=== PATIENT | male | born 1965 | race Caucasian/White ===

== ENCOUNTER 2020-12-21 05:25 | Emergency (ER) | payer OTHER, SELFPAY ==
--- NOTE | ~2020-12-21 | XR_ITS ---
EXAMINATION: CT abdomen pelvis wo con, XR abdomen/kub 1V DATE: 12/21/2020 05:50 (accession [id number]), 12/21/2020 05:54 (accession [id number]) INDICATION: Right flank pain TECHNIQUE: Computed tomography (CT) of the abdomen and pelvis was performed without intravenous contr ast. The dose-length product was 468.67 mGy-cm. Automated exposure control and iterative reconstructi on technique were employed. KUB. COMPARISON: No prior studies for comparison. . FINDINGS: Lung bases are unremarkable. Heart size is normal. No significant pleural or pericardial ef fusion. There is a 4 mm in stone at the expected location of the UPJ, possibly in the bladder. Mild r ight hydroureteronephrosis. Fatty infiltration of the liver. The spleen, pancreas, adrenal glands are unremarkable. There are nonobstructing bilateral renal stones. There are mildly prominent mesenteric lymph nodes with stranding of the mesentery in the left upper a bdomen. Nonobstructive bowel gas pattern. Small fat-containing umbilical hernia. Gallbladder is prese nt. The spleen, pancreas are unremarkable. No abnormal pelvic masses or fluid collections. Mild lower lumbar spondylosis. KUB: The right UPJ stone is not identified on KUB. There are left pelvic phleboliths. Bowel gas patte rn nonobstructive. IMPRESSION: 1. Partially obstructive 4 mm stone near the expected location of the right UPJ, possibly in the blad patricia. Mild right hydronephrosis. 2: Bilateral nonobstructing nephrolithiasis. Reviewed, dictated and finalized at location A. IMPRESSION: 1. Partially obstructive 4 mm stone near the expected location of the right UPJ , possibly in the bladder. Mild right hydronephrosis. 2: Bilateral nonobstructing nephrolithiasis.
[2020-12-21 05:30] VITALS: BP 167/98; PULSE 70; RESP 18; TEMP 36.8; O2SAT 97
[2020-12-21 05:47] LABS: Basophils Percent Auto 0.4 % (0.2-1.2); Eosinophils Absolute Auto 0.2 K/mm3 (0-0.3); Eosinophils Percent Auto 2.1 % (0-4.4); Hematocrit 44.6 % (42.0-52.0); Hemoglobin 15.9 g/dL (14.0-18.0); Immature Granulocyte Absolute 0.03 K/mm3 (0.00-0.031); Immature Granulocyte Percent A 0.3 % (0-0.5); Lymphocytes Absolute Auto 1.47 K/mm3 (0.9-3.2); Lymphocytes Percent Auto 14.8 % (18.3-44.2); Mean Corpuscular HGB Conc 35.7 g/dl (32-36); Mean Corpuscular Hemoglobin 32.2 pg (26-34); Mean Corpuscular Volume 90.3 fl (80-100); Mean Platelet Volume 11.3 fl (7.4-10.4); Monocytes Absolute Auto 0.7 K/mm3 (0.1-0.6); Monocytes Percent Auto 6.7 % (2.6-8.5); Neutrophils Absolute Auto 7.5 K/mm3 (1.3-6.7); Neutrophils Percent Auto 75.7 % (45.5-73.1); Platelet Count Result 190 k/mm3 (150-375); Red Blood Count 4.94 M/mm3 (4.6-6.20); Red Cell Distribution Width 10.8 % (11.5-14.5)
[2020-12-21] MEDS: SODIUM CHLORIDE 0.9% IV 1,000 ML 999 ML IV CONT (05:54)
[2020-12-21] MEDS: MORPHINE SULFATE (*CRX) 4 MG/ML INJ IV PUSH (05:54)
[2020-12-21] MEDS: ONDANSETRON INJ 4 MG/2 ML VIAL IV PUSH (05:54)
[2020-12-21 05:56] LABS: Alanine Aminotransferase 88 U/L (4-50); Albumin Level 4.5 g/dL (3.5-5.1); Alkaline Phosphatase 83 U/L (38-126); Anion Gap 10 mmol/L (8-16); Aspartate Amino Transferase 47 U/L (17-59); Bilirubin,Total 0.8 mg/dL (0.2-1.3); Blood Urea Nitrogen 15 mg/dL (9-20); Calcium 9.1 mg/dL (8.4-10.2); Carbon Dioxide 22 mmol/L (22-30); Chloride 105 mmol/L (98-107); Estimated CRCL calculation 121 ml/min; Estimated Glomerular Filt Rate > 60; Glucose 237 mg/dL (65-110); Potassium 3.7 mmol/L (3.4-5.0); Sodium 137 mmol/L (137-145)
[2020-12-21 06:21] LABS: Add Urine Microscopic? YES; Appearance Urine Clear (Clear); Bilirubin Urine Negative (Negative); Blood Urine 1+ (Negative); Color Urine Yellow (Yellow); Glucose Urine UA 2+ mg/dL (Negative); Ketones Urine Trace mg/dL (Negative); Leukocyte Esterase Ur Negative LEU/UL (Negative); Mucus Urine Few /lpf; Nitrate Urine Negative (Negative); Protein Urine 1+ mg/dL (Negative); Urobilinogen Urine Negative mg/dL (<2.0); WBC Urine 0-3 /hpf
[2020-12-21 06:46] VITALS: BP 151/81; PULSE 81; RESP 16; O2SAT 98
--- NOTE | 2020-12-21 07:27 | ED.ABDPAIN ---
HPI - Abdominal Pain General Chief Complaint: Urogenital-Male Stated Complaint: kidney stones Time Seen by Provider: 12/21/20 05:31 History of Present Illness HPI narrative: Patient presents with sudden onset right flank pain which started this morning when he woke up. Pain is achy/crampy, constant, no clear aggravating or alleviating factors radiates to his groin. Reports sensation of needing urinate but is unable to get sick around the urine out. Denies any fevers, cough. Reports some nausea but no vomiting or diarrhea. He denies any dysuria or hematuria. He denies any prior history of stone. Related Data Home Medications Medication Instructions Recorded Confirmed multivitamin 1 tablet PO DAILY 07/10/20 11/13/20 vitamin E 200 unit capsule 200 unit PO DAILY 07/10/20 11/13/20 Allergies Allergy/AdvReac Type Severity Reaction Status Date / Time No Known Allergies Allergy Verified 12/21/20 05:47 Review of Systems Review of Systems: CONSTITUTIONAL: Denies fever, chills, or sweats. EYES: Denies visual changes, redness, or discharge. ENT: Denies rhinorrhea, congestion, sore throat, or otalgia. CARDIOVASCULAR: Denies chest pain, palpitations, or edema. RESPIRATORY: Denies cough or dyspnea. GASTROINTESTINAL: Denies vomiting, or diarrhea. GENITOURINARY: Denies dysuria or hematuria. SKIN: Denies rash or itching. MUSCULOSKELETAL: Denies back pain, joint pain, or myalgia. NEUROLOGIC: Denies headache, numbness, dizziness, or weakness. PSYCHIATRIC: Denies anxiety or depression. All systems reviewed & are unremarkable except as noted in HPI and below PMFSH Past Medical History Medical History Hypertension Family History Family History Mother Colostomy care Father Brain aneurysm Social History Social History Smoking status: Never smoker Gender identity (if verbalized by the patient): Male Exam Narrative: GENERAL: Well-appearing, well-nourished, and in no acute distress. HEAD: Normocephalic, atraumatic. EYES: PERRLA and EOMI. ENT: Nares clear, no rhinorrhea or epistaxis. Mucous membranes moist. NECK: Supple. No masses. No JVD ABDOMEN: Soft, nontender, nondistended EXTREMITIES: Normal range of motion. No edema. SKIN: Warm, dry, no rash. NEURO: No focal deficits. Alert and oriented x3. PSYCH: Normal mood and affect. Course Vital Signs Vital signs: Vital Signs Temperature 36.8 C 12/21/20 05:30 Pulse Rate 70 12/21/20 05:30 Respiratory Rate 18 12/21/20 05:30 Blood Pressure 167/98 H 12/21/20 05:30 Pulse Oximetry 97 12/21/20 05:30 Temperature 36.8 C 12/21/20 05:30 Pulse Rate 81 12/21/20 06:46 Respiratory Rate 16 12/21/20 06:46 Blood Pressure 151/81 H 12/21/20 06:46 Pulse Oximetry 98 12/21/20 06:46 MDM - Abdominal Pain MDM Narrative Medical decision making narrative: H&P as above, vss, pt looks clinically well, exam without reproducible pain, labs with hematuria otherwise clinically unremarkable img with 4 mm UVJ stone, additional labs/img considered, symptomatic relief available as needed, on reevaluation pt continues to looks clinically well and reports large improvement in symptoms. Suspect ureteral stone, dns infected stone, acute abdomen, acute kidney injury. plan to tx/monitor as op w/ urology f/u findings/plan discussed with pt, pt agree/comfortable with plan, return precautions given Lab Data Result diagrams: 12/21/20 05:39 12/21/20 05:39 Labs: Lab Results 12/21/20 12/21/20 12/21/20 Range/Units 05:39 05:39 06:04 WBC 10.0 (4.5-10.0) K/mm3 RBC 4.94 (4.6-6.20) M/mm3 Hgb 15.9 (14.0-18.0) g/dL Hct 44.6 (42.0-52.0) % MCV 90.3 (80-100) fl MCH 32.2 (26-34) pg MCHC 35.7 (32-36) g/dl RDW 10.8 L (11.5-14.5) % Plt Count 1
== END 2020-12-21 07:53 | disposition home or self-care (01) ==
PROVIDERS: Emergency Provider Emergency Medicine; PCP Internal Medicine
DX: N13.2 Hydronephrosis with renal and ureteral calculous obstruction (principal); I10 Essential (primary) hypertension
CPT/HCPCS: 36415; 74018; 74176; 80053; 81001; 85025; 96361; 96374; 96375; 99284; J2270; J2405; J7030

== ENCOUNTER 2021-05-25 09:25 | Outpatient (CLI) | payer OTHER, SELFPAY ==
--- NOTE | ~2021-05-25 | US_ITS ---
EXAMINATION: US abdomen complete EXAM DATE: 05/25/2021 09:59 INDICATION: K76.0 - Fatty (change of) liver, not elsewhere classified TECHNIQUE: Multiple grayscale and Doppler images of the complete abdomen were obtained (by a technolo gist who performed the scan) and subsequently reviewed. Comparison is made to prior examination from 07/01/2016. FINDINGS: The abdominal aorta is normal in caliber. Visualized portion IVC is patent. The pancreatic head a nd body are normal in appearance. The pancreatic tail is not visualized. There is echogenic liver parenchyma with poor penetration, hepatic steatosis. There are no focal mellissa er lesions identified. There is no evidence of intrahepatic biliary duct dilation. Portal venous f low was seen in the hepatopedal, normal direction and has normal Doppler waveform. Common bile duct measures 5 mm, which is normal. The gallbladder wall is normal in thickness, with ex pected amount of distention. No sonographic evidence of pericholecystic fluid. There is no cholelit hiases. Technologist performing exam reports patient did not demonstrate sonographic Joyner's sign. Please note that this sign is less reliable in patients who have received pain medication. Right kidney: There is normal contour and echogenicity. It measures 12.6 x 5.2 x 5.6 centimeters. There are no focal renal lesions identified. There is no hydronephrosis. Left kidney: There is normal contour and echogenicity. It measures 13.7 x 6.2 x 5.4 centimeters. T here are no focal renal lesions identified. There is no hydronephrosis. The spleen measures 11 centimeters and is morphologically normal. IMPRESSION: 1. Hepatic steatosis. Reviewed, dictated and finalized at location B. REMOVER IMPRESSION: 1. Hepatic steatosis.
== END 2021-05-25 09:26 | disposition home or self-care (01) ==
PROVIDERS: PCP Internal Medicine; Visit Provider Internal Medicine
DX: K76.0 Fatty (change of) liver, not elsewhere classified (principal)
CPT/HCPCS: 76700

== ENCOUNTER 2021-06-11 13:42 | Outpatient (CLI) | payer OTHER, SELFPAY ==
--- NOTE | ~2021-06-11 | XR_ITS ---
XR foot RT min 3V DATE: 06/11/2021 14:02 INDICATION: Bilateral foot pain. No injury. TECHNIQUE: 4 views COMPARISON: None FINDINGS: Mild plantar calcaneal enthesopathy. Mild tibiotalar and first metatarsophalangeal osteoarthritis. No fracture, dislocation, periosteal reaction or bone destruction. IMPRESSION: Plantar calcaneal enthesopathy Mild tibiotalar and first metatarsophalangeal joint osteoarthritis Reviewed, dictated and finalized at location A. 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
--- NOTE | ~2021-06-11 | XR_ITS ---
XR foot LT min 3V DATE: 06/11/2021 14:02 INDICATION: Bilateral foot pain TECHNIQUE: 4 views COMPARISON: None FINDINGS: There is tibiotalar and first metatarsophalangeal osteoarthritis. No fracture or dislocation, periosteal reaction or bone destruction is detected. There is calcification of the distal Achilles tendon. IMPRESSION: Tibiotalar first metatarsophalangeal osteoarthritis Distal Achilles tendon calcification Reviewed, dictated and finalized at location A. P TEACHER
== END 2021-06-11 13:43 | disposition home or self-care (01) ==
LOC: ANHBWCIMG 13:44
PROVIDERS: PCP Internal Medicine; Visit Provider Orthopaedic Surgery
DX: M77.31 Calcaneal spur, right foot (principal); M19.071 Primary osteoarthritis, right ankle and foot; M19.072 Primary osteoarthritis, left ankle and foot
CPT/HCPCS: 73630

== ENCOUNTER 2024-08-29 09:59 | Emergency (ER) | payer OTHER, SELFPAY ==
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
--- OUTSIDE RECORDS SUMMARY | 2024-08-29 10:01 | XMS_ITS | Clinical Summary ---
Author Organization [facility] Address [address] [place] [address] Care Team Providers Care Disintegrator Operator Name Role Phone Dre Christianson MD Primary Care Provider [phone] Allergies No known active allergies Medications gabapentin (NEURONTIN) 300 mg capsule Take one by mouth three times per day as needed 90 1 07/28/2007 Active pregabalin (LYRICA) 50 mg capsule Take one by mouth three times per day as needed 90 3 08/04/2007 Active methylPREDNISol one (MEDROL, MARZENA,) 4 mg tablet Take as directed 1 0 08/18/2007 Active HYDROcodone-sasha taminophen (NORCO) 5-325 mg per tablet take 1 tablet by oral route every 6 hours as needed for pain 0 0 06/06/2016 Active amLODIPine (NORVASC) 10 mg tablet 02/04/2017 Active Active Problems No known active problems Surgical History Surgery Date Site/Laterality Comments OTHER SURGICAL HISTORY 2000 fluid in sac: hydroseal Medical History Medical History Date Comments Hx Other Medical 2000 fluid in sac Family History Medical History Relation Name Comments Cancer Other 1 Family history of Cancer, unknown; Heart disease Other 2 Family history of Heart disease; Hypertension Other 3 Family history of Hypertension; Relation Name Status Comments Other 1 Other 2 Other 3 Social History Tobacco Use Types Packs/Day Years Used Date Smoking Tobacco: Never Smokeless Tobacco: Never Alcohol Use Standard Drinks/Week Comments Yes 0 (1 standard drink = 0.6 oz pur e alcohol) Sex and Gender Information Value Date Recorded Sex Assigned at Not on file Legal Sex Male 3:50 PM YOUTH PROBATION OFFICER Gender Identity Not on file Sexual Orientation Not on file Obstetrics History Last Filed Vital Signs Vital Sign Reading Time Taken Comments Blood Pressure 154/93 04/07/2017 7:20 AM YOUTH PROBATION OFFICER Pulse 77 04/07/2017 7:20 AM YOUTH PROBATION OFFICER Temperature - - Respiratory Rate - - Oxygen Saturation - - Inhaled Oxygen Concentration - - Weight 112.3 kg (247 lb 9.6 oz) 04/07/2017 7:20 AM YOUTH PROBATION OFFICER Height 185.4 cm (6' 1 ) 04/07/2017 7:20 AM YOUTH PROBATION OFFICER Body Mass Index 32.67 04/07/2017 7:20 AM YOUTH PROBATION OFFICER Plan of Treatment Not on file Care Teams Disintegrator Operator Relationship Specialty Start Date End Date Dre Christianson MD PCP - General 08/02/16
--- OUTSIDE RECORDS SUMMARY | 2024-08-29 10:01 | XMS_ITS | Clinical Summary ---
Author Organization [facility] [employer] Address [address] [place] [address] Care Team Providers Care Outdoor Education Teacher Name Role Phone Dre Christianson MD Primary Care Provider [phone] Source Comments [facility] [employer],non-owned Affiliates and Associated Physician Practices is amultiple site organization consisting of ambulatory clinics and hospital sitesin [place], [place] and [place]. This disclosure is being madepursuant to the Care Everywhere program and may not contain all information available regarding this patient. Last updated 18.[facility] [employer] Allergies No known active allergies Medications * Be aware that medications may not be up to date on this document. Alwaysverify current medications with the patient. Multiple Vitamins-Minera ls (ONE-A-DAY [facility] FORMULA) TABS Take by mouth once daily Active Dextromethorpha n-Guaifenesin (ROBITUSSIN DM PO) Take 2 capsules by mouth as needed Active METFORMIN HCL PO Take 750 mg by mouth every evening Active irbesartan (AVAPRO) 150 MG tablet Take 150 mg by mouth once daily Active vitamin E (TOCOPHERYL) 400 UNIT capsule Take 400 Units by mouth once daily Active Active Problems Problem Noted Date Diagnosed Date Pre-diabetes 07/08/2018 NAFLD (nonalcoholic fatty liver disease) 019 Overview (07/08/2018): 07/07/18 Fibroscan CAP 367, E 5.0 kPa HTN (hypertension) 06/09/2018 Elevated liver enzymes 06/09/2018 Social History Tobacco Use Types Packs/Day Years Used Date Smoking Tobacco: Never Smokeless Tobacco: Never Tobacco Cessation:Counseling Given: No Alcohol Use Standard Drinks/Week Comments Yes 0 (1 standard drink = 0.6 oz pur e alcohol) occasional, beer Sex and Gender Information Value Date Recorded Sex Assigned at Not on file Legal Sex Male 11:09 AM CDT Gender Identity Not on file Sexual Orientation Not on file Last Filed Vital Signs Vital Sign Reading Time Taken Comments Blood Pressure 174/87 01/26/2019 8:04 AM CDT Pulse 99 01/26/2019 8:04 AM CDT Temperature 37.1 C (98.7 F) 01/26/2019 8:04 AM CDT Respiratory Rate 18 01/26/2019 8:04 AM CDT Oxygen Saturation 96% 01/26/2019 8:04 AM CDT Inhaled Oxygen Concentration - - Weight 114.4 kg (252 lb 4.8 oz) 01/26/2019 8:04 AM CDT Height 182.9 cm (6') 01/26/2019 8:04 AM CDT Body Mass Index 34.22 01/26/2019 8:04 AM CDT Plan of Treatment Health Maintenance Due Date Last Done Comments COLOGUARD (AGES 45-75) - COL ON CA SCREENING 1966 COLON MONITORING 1966 COLONOSCOPY - COLON CA SCREENING 1966 CT COLONOGRAPHY - COLON CA SCREENING 1966 Colorectal Cancer Screening 1966 FIT - COLON CA SCREENING 1966 FLEX SIG - COLON CA SCREENING 1966 HIV SCREENING 1981 HEPATITIS C SCREENING 09/21/1984 DTAP/TDAP/TD VACCINES (1 - Tdap) 1985 HEPATITIS B VACCINE (1 of 3 - 19+ 3-dose series) 1985 PNEUMOCOCCAL VACCINE 50+ (1 of 1 - PCV) 2016 ZOSTER VACCINE (1 of 2) 2016 SCREENING FOR DIABETES 01/05/2022 , 06/22/2018 LIPID TESTING 2023 09/25/2018 COVID-19 VACCINE (1 - 2023-2 5 season) 2024 DEPRESSION SCREENING 05/05/2024 INFLUENZA VACCINE (Season Ended) 2025 HIB VACCINE Aged Out No longer eligi ble based on patient's age to complete this topic HPV VACCINE Aged Out No longer eligi ble based on patient's age to complete this topic MENINGOCOCCAL (Group B) VACCINE SHARED DECISION-MAKING Aged Out No longer eligible based on patient's age to complete this topic MENINGOCOCCAL GROUPS A/C/Y/W VACCINE Aged Out No longer eligible b ased on patient's age to complete this topic Goals Goal Patient Goal Type Associated Problems Recent Progress Patient-Stated? Author Medication Management General On track( 019 8:19 AM CDT) Andrea Iverson RN Note: Expected end date: Interventions: Take all medications as prescribed Let your doctor know right away about any changes in your medications Make sure to request a refill of your medication at least one week prior to your last dose Procedures Procedure Name Priority Date/Time Associated Diagnosis Comments HEMOGLOBIN A1C (EXTERNAL RESULT ENTRY) Routine 01/05/2019 7:21 AM CDT LIPID PROFILE 09/25/2018 7:18 AM CDT from Last 3 Months or Most Recently Relevant to Health Maintenance Results * HEMOGLOBIN A1C (EXTERNAL RESULT ENTRY) (01/05/2019 7:21 AM CDT) Hemoglobin A1c (EXTERNAL RESULT) 5.6 <5.7 % Blood BLOOD SPECIMEN / Unknown 01/05/2019 7:21 AM CDT us Historical Provider LAB - CHEMISTRY ORDERABLE S Final Result * (ABNORMAL) LIPID PROFILE (09/25/2018 7:18 AM CDT) Cholesterol 179 <200 mg/dL [facility] HDL Cholesterol 55 >40 mg/dL [facility] Triglycerides 134 <150 mg/dL [facility] LDL Calculated 101(H) mg/dL (calc) [facility] Comment: Reference range: <100 Desirable range <100 mg/dL for primary prevention; <70 mg/dL for patients with CHD or diabetic patients with > or = 2 CHD risk factors. LDL-C is now calculated using the William calculation, which is a validated novel method providing better accuracy than the Friedewald equation in the estimation of LDL-C. Fausto REYNOLDS et al. DELIA. 2013;310(19): 6690-1972 (http://education.[facility].com/faq/GYX009) CHOL/HDLC RATIO 3.3 <5.0 (calc) [facility] Non HDL Cholesterol 124 <130 mg/dL (calc) [facility] Comment: For patients with diabetes plus 1 major ASCVD risk factor, treating to a non-HDL-C goal of <100 mg/dL (LDL-C of <70 mg/dL) is considered a therapeutic option. Test Performed at: [facility] [id number] [place] [address] JENNIFER BROWN DO,MPH 09/25/2018 7:1 8 AM CDT 09/25/2018 7:19 AM CDT Bubba Jain MD LAB - CHEMISTRY ORDERAB LES Final Result [facility] [id number] [place] [address] from Last 3 Months or Most Recently Relevant to Health Maintenance [facility] Address: [facility] [address] [place] [address] Care Teams Outdoor Education Teacher Relationship Specialty Start Date End Date Dre Christianson MD [address] [facility] [address] [place] [address] PCP - General 10/17/17
--- OUTSIDE RECORDS SUMMARY | 2024-08-29 10:01 | XMS_ITS | Referral Summary ---
Author Organization [facility] Address [address] [place] [address] Care Team Providers Care District Loss Prevention Manager Name Role Phone Dre Christianson MD Primary Care Provider [phone] Allergies No known active allergies Medications gabapentin [...] Active Active Problems No known active problems Social History Tobacco Use Types Packs/Day Years Used Date Smoking Tobacco: Never Smokeless Tobacco: Never Alcohol Use Standard Drinks/Week Comments Yes 0 (1 standard drink = 0.6 oz pur e alcohol) Sex and Gender Information Value Date Recorded Sex Assigned at Not on file Legal Sex Male 3:50 PM MINI BACCARAT DEALER Gender Identity Not on file Sexual Orientation Not on file Last Filed Vital Signs Vital Sign Reading Time Taken Comments Blood Pressure 154/93 04/07/2017 7:20 AM MINI BACCARAT DEALER Pulse 77 04/07/2017 7:20 AM MINI BACCARAT DEALER Temperature - - Respiratory Rate - - Oxygen Saturation - - Inhaled Oxygen Concentration - - Weight 112.3 kg (247 lb 9.6 oz) 04/07/2017 7:20 AM MINI BACCARAT DEALER Height 185.4 cm (6' 1 ) 04/07/2017 7:20 AM MINI BACCARAT DEALER Body Mass Index 32.67 04/07/2017 7:20 AM MINI BACCARAT DEALER Plan of Treatment Not on file Care Teams District Loss Prevention Manager Relationship Specialty Start Date End Date Dre Christianson MD PCP - General 08/02/16
--- OUTSIDE RECORDS SUMMARY | 2024-08-29 10:02 | XMS_ITS | Continuity of Care Document ---
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 It does not include entries that were removed or entered in error. Problem Status Onset Date Problem Type Date of Resolution Comments Source Hearing Loss, Sensorineural, Unspecified Active Condition [facility] visit for: pre-employment physical Active Condition DoD lumbago Active Condition DoD Other Physical Therapy Inactive Condition DoD backache Inactive Condition Pt to take medications as Rx, and will refer to PT for further eval and treatment. DoD tinnitus Active Condition DoD Preventive Medicine Established Patient Checkup Adult 18-39 Years Inactive Condition DoD ringing in the ears (tinnitus) Active Condition DoD visit for: services physical Inactive Condition Detention paperwork completed - will refer to audiology to re-eval hearing and ringing in ears. DoD joint pain, localized in the knee Active Condition DoD ankle joint pain Active Condition DoD viral syndrome Active Condition DoD upper respiratory infection Inactive Condition Pt to take medication as Rx, to drink plenty of fluids and to wash hands regularly. Pt to follow-up if not better in 7-10 days. DoD superficial injury - abrasion of cornea Inactive Condition Reepithel ized 100% residual hemosiderin stain DoD Eyelid Foreign Body Right Eye Active Condition DoD superficial injury - abrasion of right cornea Inactive Condition DoD visit for: follow-up exam Inactive Condition 0mm negative DoD visit for: screening exam pulmonary tuberculosis Inactive Condition DoD sensorineural hearing loss Active Condition Today's results show a mild HF SnHL at 4k-6k Hz AD and normal hearing acuity (although some borderline mild thresholds at 4k-6k Hz). Normal middle ear function with refelxes present bilaterally. DPOAEs were in agreement with puretone findings and h/o DoD hearing loss Active Condition AF Form 4953 completed and signed. Return to audiology for further testing. DoD Administrative Evaluation Services Inactive Condition PHA perf ormed - pt to follow-up for any issues/concerns . 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 Medication Details Route Status Patient Instructions Prescription Expires Prescription Number Last Dispense Date Ordering Provider Order Date Order Qty Source TRIAMCINOLO NE ACETONIDE (TRIAMCINOL ONE ACETONIDE), 0.5%, CREAM(GM), TOPICAL, FOUGERA, 15 g TUBE Active [id number] 2023 15 Pharmac y Data Transac tion Service Facilit y Allergies, Adverse Reactions, Alerts Combined list of allergies from Department of Defense and Veterans Affairs facilities. It does not include entries that were removed or entered in error. Substance Category Reaction Severity Reaction type Status Date Reported Comments Source OTHER Drug allergy (disorder) Unknown active 5 [employer] [facility] [place] [place] OTHER Propensity to adverse reactions to drug Unknown Active 5 72 96.4KG NKDA [id number] IBW=77.6K G Unknown Organization Immunizations Combined list of available immunizations from the Department of Defense and Veterans Affairs facilities. Immunization Series Date Given Administered By Site Reaction Lot Number CVX Code Drug Radiator Specialist Status Comments Source tetanus, diphtheria, acellular pertu is 2016 zzRig ht Arm [id number] 115 GlaxoSmithK[employer] ne complet ed tetanus, diphtheri a, acellular pertussis 12/17/16 Given Ambulat ory Pharmac y tetanus toxoid, reduced diphtheria toxoid, and acellular pertu is vaccine, adsorbed 1 2016 Unknown, Provider [id number] 115 JameelKline (SKB) complet ed tetanus toxoid, reduced diphtheri a toxoid, and acellular pertussis vaccine, adsorbed DoD varicella virus vaccine 0 2006 21 () Not Given varicella virus vaccine DoD influenza virus vaccine,split 2006 [id number] 15 GlaxoSmithKli ne complet ed influenza virus vaccine,s plit 05/13/06 Given Ambulat ory Pharmac y influenza virus vaccine, split virus (incl. purified surface antigen)-reti red CODE 1 2006 [id number] 15 SmithKline (SKB) complet ed influenza virus vaccine, split virus (incl. purified surface antigen)- retired CODE DoD tuberculin purified protein derivative 2004 zzLef t Arm [id number] 96 sanofi pasteur complet ed Patient Tolerance : Negative Ambulat ory Pharmac y tuberculin skin test; purified protein derivative solution, intradermal 1 2004 Unknown, Provider [id number] 96 Sanofi Pasteur ([facility]) complet ed tuberculi n skin test; purified protein derivativ e solution, intraderm al DoD hepatitis B adult vaccine 2004 [id number] 43 GlaxoSmithKli ne complet ed hepatitis B adult vaccine 04/18/05 Given Ambulat ory Pharmac y hepatitis B vaccine, adult dosage 3 2004 [id number] 43 SmithKline (SKB) complet ed hepatitis B vaccine, adult dosage DoD influenza virus vaccine,split 2004 [id number] 15 sanofi pasteur complet ed influenza virus vaccine,s plit 03/22/05 Given Ambulat ory Pharmac y influenza virus vaccine, split virus (incl. purified surface antigen)-reti red CODE 1 2004 [id number] 15 Sanofi Pasteur ([facility]) complet ed influenza virus vaccine, split virus (incl. purified surface antigen)- retired CODE DoD hepatitis B adult vaccine 2004 [id number] A4 43 GlaxoSmithKli ne complet ed hepatitis B adult vaccine 11/07/04 Given Ambulat ory Pharmac y hepatitis B vaccine, adult dosage 2 2004 [id number] A4 43 SmithKline (SKB) complet ed hepatitis B vaccine, adult dosage DoD tuberculin purified protein derivative 2004 zzLef t Arm [id number] 96 sanofi pasteur complet ed Patient Tolerance : Negative Ambulat ory Pharmac y hepatitis B adult vaccine 2004 [id number] A4 43 GlaxoSmithKli ne complet ed hepatitis B adult vaccine 10/03/04 Given Ambulat ory Pharmac y hepatitis B vaccine, adult dosage 1 2004 [id number] A4 43 SmithKline (SKB) complet ed hepatitis B vaccine, adult dosage DoD tuberculin skin test; purified protein derivative solution, intradermal 1 2004 Unknown, Provider [id number] 96 Sanofi Pasteur ([facility]) complet ed tuberculi n skin test; purified protein derivativ e solution, intraderm al DoD vaccinia (smallpox) vaccine 2004 [id number] 75 [facility] complet ed vaccinia (smallpox ) vaccine 08/15/04 Given Ambulat ory Pharmac y vaccinia (smallpox) vaccine 1 2004 [id number] 75 [facility] ([facility]) complet ed vaccinia (smallpox ) vaccine DoD typhoid vaccine, parenteral 2004 [id number] 41 sanofi pasteur complet ed typhoid vaccine, parentera l 07/18/04 Given Ambulat ory Pharmac y influenza virus vaccine,split 2004 [id number] 15 sanofi pasteur complet ed influenza virus vaccine,s plit 07/18/04 Given Ambulat ory Pharmac y influenza virus vaccine, split virus (incl. purified surface antigen)-reti red CODE 0 2004 [id number] 15 Sanofi Pasteur ([facility]) complet ed influenza virus vaccine, split virus (incl. purified surface antigen)- retired CODE DoD typhoid vaccine, parenteral, other than acetone-kille d, dried 0 2004 [id number] 41 Sanofi Pasteur ([facility]) complet ed typhoid vaccine, parentera l, other than acetone-k illed, dried DoD influenza virus vaccine, whole virus 2003 [id number] 16 sanofi pasteur complet ed influenza virus vaccine, whole virus 05/18/03 Given Ambulat ory Pharmac y influenza virus vaccine, whole virus 0 2003 [id number] 16 Sanofi Pasteur ([facility]) complet ed influenza virus vaccine, whole virus DoD typhoid vaccine, parenteral 2002 [id number] 41 sanofi pasteur complet ed typhoid vaccine, parentera l 06/08/02 Given Ambulat ory Pharmac y typhoid vaccine, parenteral, other than acetone-kille d, dried 0 2002 [id number] 41 Sanofi Pasteur ([facility]) complet ed typhoid vaccine, parentera l, other than acetone-k illed, dried DoD influenza virus vaccine, whole virus 2001 [id number] 16 [employer] complet ed influenza virus vaccine, whole virus 03/03/02 Given Ambulat ory Pharmac y influenza virus vaccine, whole virus 0 2001 [id number] 16 [employer] ([facility]) complet ed influenza virus vaccine, whole virus DoD meningococcal polysaccharid e (MPSV4) 2001 [id number] 32 sanofi pasteur complet ed meningoco ccal polysacch aride (MPSV4) 09/11/01 Given Ambulat ory Pharmac y meningococcal polysaccharid e vaccine (MPSV4) 0 2001 [id number] 32 Sanofi Pasteur ([facility]) complet ed meningoco ccal polysacch aride vaccine (MPSV4) DoD influenza virus vaccine, whole virus 2000 [id number] 16 sanofi pasteur complet ed influenza virus vaccine, whole virus 02/23/01 Given Ambulat ory Pharmac y influenza virus vaccine, whole virus 0 2000 [id number] 16 Sanofi Pasteur ([facility]) complet ed influenza virus vaccine, whole virus DoD tuberculin purified protein derivative 2000 [id number] 96 [facility] Patient Tolerance : Negative Ambulat ory Pharmac y tuberculin skin test; purified protein derivative solution, intradermal 1 2000 Unknown, Provider [id number] 96 [facility] ([facility] complet ed tuberculi n skin test; purified protein derivativ e solution, intraderm al DoD influenza virus vaccine, whole virus 1999 [id number] 16 [employer] complet ed influenza virus vaccine, whole virus 04/07/00 Given Ambulat ory Pharmac y typhoid vaccine, parenteral 1999 [id number] 41 [facility] complet ed typhoid vaccine, parentera l 04/07/00 Given Ambulat ory Pharmac y influenza virus vaccine, whole virus 0 1999 [id number] 16 [employer]st (Inactive) ([place]) complet ed influenza virus vaccine, whole virus DoD typhoid vaccine, parenteral, other than acetone-kille d, dried 0 1999 [id number] 41 [place] (CON) complet ed typhoid vaccine, parentera l, other than acetone-k illed, dried DoD yellow fever vaccine 1999 [id number] 37 [facility] complet ed yellow fever vaccine 11/22/99 Given Ambulat ory Pharmac y yellow fever vaccine 0 1999 [id number] 37 [facility] ([facility] complet ed yellow fever vaccine DoD anthrax vaccine 1999 [id number] 24 [employer] complet ed anthrax vaccine 10/25/99 Given Ambulat ory Pharmac y anthrax vaccine 4 1999 [id number] 24 [employer] (MIP) complet ed anthrax vaccine DoD anthrax vaccine 1999 [id number] 24 [employer] complet ed anthrax vaccine 05/16/99 Given Ambulat ory Pharmac y anthrax vaccine 3 1999 [id number] 24 [employer] ([facility]IP) complet ed anthrax vaccine DoD anthrax vaccine 1998 24 [employer] complet ed anthrax vaccine 04/30/99 Given Ambulat ory Pharmac y anthrax vaccine 2 1998 24 [employer] (MIP) complet ed anthrax vaccine DoD anthrax vaccine 1998 [id number] 24 [employer] complet ed anthrax vaccine 04/12/99 Given Ambulat ory Pharmac y anthrax vaccine 1 1998 [id number] 24 [employer] (MIP) complet ed anthrax vaccine DoD tuberculin purified protein derivative 1998 [id number] 96 [facility] complet ed Patient Tolerance : Negative Ambulat ory Pharmac y influenza virus vaccine, whole virus 1998 16 complet ed influenza virus vaccine, whole virus 03/09/99 Given Ambulat ory Pharmac y influenza virus vaccine, whole virus 0 1998 16 () complet ed influenza virus vaccine, whole virus DoD tuberculin skin test; purified protein derivative solution, intradermal 1 1998 Unknown, Provider [id number] 96 [facility] ([facility] complet ed tuberculi n skin test; purified protein derivativ e solution, intraderm al DoD tuberculin purified protein derivative 1998 96 complet ed Patient Tolerance : Negative Ambulat ory Pharmac y tuberculin skin test; purified protein derivative solution, intradermal 1 1998 Unknown, Provider 96 () complet ed tuberculi n skin test; purified protein derivativ e solution, intraderm al DoD typhoid vaccine, parenteral 1997 41 complet ed typhoid vaccine, parentera l 03/01/98 Given Ambulat ory Pharmac y typhoid vaccine, parenteral, other than acetone-kille d, dried 0 1997 41 () complet ed typhoid vaccine, parentera l, other than acetone-k illed, dried DoD tuberculin purified protein derivative [id number] 96 [facility] complet ed Patient Tolerance : Negative Ambulat ory Pharmac y influenza virus vaccine, whole virus [id number] 16 [facility] complet ed influenza virus vaccine, whole virus 02/08/98 Given Ambulat ory Pharmac y influenza virus vaccine, whole virus 0 [id number] 16 [facility] ([facility] complet ed influenza virus vaccine, whole virus DoD tuberculin skin test; purified protein derivative solution, intradermal 1 1997 Unknown, Provider [id number] [facility] ([facility]) complet ed tuberculi n skin test; purified protein derivativ e solution, intraderm al DoD tetanus-dipht h toxoids (Td) adult/adol 1997 09 complet ed tetanus-d iphth toxoids (Td) adult/ado l 08/05/97 Given Ambulat ory Pharmac y tetanus and diphtheria toxoids, adsorbed, preservative free, for adult use (2 Lf of tetanus toxoid and 2 Lf of diphtheria toxoid) 0 1997 09 () complet ed tetanus and diphtheri a toxoids, adsorbed, preservat petey free, for adult use (2 Lf of tetanus toxoid and 2 Lf of diphtheri a toxoid) DoD tuberculin purified protein derivative [address] [place] [address] complet ed Patient Tolerance : Negative Ambulat ory Pharmac y tuberculin skin test; purified protein derivative solution, intradermal 1 1996 Unknown, Provider CON [employer] (CON) complet ed tuberculi n skin test; purified protein derivativ e solution, intraderm al DoD influenza virus vaccine, whole virus 1996 [id number] 16 [facility] complet ed influenza virus vaccine, whole virus 03/08/97 Given Ambulat ory Pharmac y influenza virus vaccine, whole virus 0 1996 [id number] 16 [facility] ([facility] complet ed influenza virus vaccine, whole virus DoD tuberculin purified protein derivative 1996 96 [facility] complet ed tuberculi n purified protein derivativ e 01/21/97 Given Ambulat ory Pharmac y meningococcal polysaccharid e (MPSV4) 1996 [id number] [facility] complet ed meningoco ccal polysacch aride (MPSV4) 07/09/96 Given Ambulat ory Pharmac y meningococcal polysaccharid e vaccine (MPSV4) 0 1996 [id number] 32 [facility] ([facility]) complet ed meningoco ccal polysacch aride vaccine (MPSV4) DoD tuberculin purified protein derivative 1995 96 complet ed Patient Tolerance : Negative Ambulat ory Pharmac y tuberculin skin test; purified protein derivative solution, intradermal 1 1995 Unknown, Provider 96 () complet ed tuberculi n skin test; purified protein derivativ e solution, intraderm al DoD hepatitis A adult vaccine 1995 52 complet ed hepatitis A adult vaccine 08/14/95 Given Ambulat ory Pharmac y hepatitis A vaccine, adult dosage 2 1995 52 () complet ed hepatitis A vaccine, adult dosage DoD typhoid, parenteral, AKD 1995 53 complet ed typhoid, parentera l, AKD 05/10/95 Given Ambulat ory Pharmac y typhoid vaccine, parenteral, acetone-kille d, dried ([place] ) 2 1995 53 () complet ed typhoid vaccine, parentera l, acetone-k illed, dried ([place] ) DoD hepatitis A adult vaccine 1994 52 complet ed hepatitis A adult vaccine 02/05/95 Given Ambulat ory Pharmac y hepatitis A vaccine, adult dosage 1 1994 52 () complet ed hepatitis A vaccine, adult dosage DoD yellow fever vaccine 1989 37 complet ed yellow fever vaccine 07/03/89 Given Ambulat ory Pharmac y yellow fever vaccine 0 1989 37 () complet ed yellow fever vaccine DoD poliovirus vaccine, live, oral 1987 02 complet ed polioviru s vaccine, live, oral 07/04/87 Given Ambulat ory Pharmac y trivalent poliovirus vaccine, live, oral 0 1987 02 () complet ed trivalent polioviru s vaccine, live, oral DoD tetanus-dipht h toxoids (Td) adult/adol 1987 09 complet ed tetanus-d iphth toxoids (Td) adult/ado l 06/07/87 Given Ambulat ory Pharmac y tetanus and diphtheria toxoids, adsorbed, preservative free, for adult use (2 Lf of tetanus toxoid and 2 Lf of diphtheria toxoid) 0 1987 09 () complet ed tetanus and diphtheri a toxoids, adsorbed, preservat petey free, for adult use (2 Lf of tetanus toxoid and 2 Lf of diphtheri a toxoid) DoD measles/mumps /rubella virus vaccine 1985 03 complet ed measles/m umps/rube lla virus vaccine 08/27/85 Given Ambulat ory Pharmac y measles, mumps and rubella virus vaccine 0 1985 03 () complet ed measles, mumps and rubella virus vaccine DoD Encounters Combined list of: 1) Encounters from Department of Veterans Affairs facilities going backup to the last 18 months, not all VA inpatient encounters are included; 2) Encounters from the Department of Defense facilities going backup to 280 months. Location Location Details Encounter Type Encounter Number Reason For Visit Attending Provider ADM Date DC Date Status Disposition Source [address] [place] [address] Yovany LEYVA [facility] [place]Fam jyoti Practice Non-GME FHI2) OUTPATIENT [id number] dianelys littlejohn in testicl es EBONIE DEVINE 04/12 Released w/o Limitations [address] [place] [address] [facility] [place]F amily Practic e Non-GME FHI2) [address] [place] [address] Yovany [facility] [place]Fam jyoti Practice Non-GME FHI2) OUTPATIENT [id number] flu s/s X3 days EBONIE DEVINE E 07/23 Released with Work/Duty Limitations [address] [place] [address] Yovany [facility] [place]F amily Practic e Non-GME FHI2) [address] [place] [address] Yovany [facility] [place]) OUTPATIENT [id number] deploym ent INDIRA Harvey 08/06 Released w/o Limitations [address] [place] [address] Yovany [facility] [place]L [facility]) Theater Facility OUTPATIENT [id number] 11/07 Released w/o Limitations Theater Facilit y Theater Facility OUTPATIENT [id number] 11/15 Released w/o Limitations Theater Facilit y Theater Facility OUTPATIENT [id number] 11/15 Released w/o Limitations Theater Facilit y Theater Facility OUTPATIENT [id number] 11/26 Released w/o Limitations Theater Facilit y [employer] [place] [place]Fam jyoti Practice Non-GME FHI2) OUTPATIENT [id number] post deploym ent MONROE RUIZ 01/03 Released w/o Limitations [employer] [place] [place]F amily Practic [place] Non-GME FHI2) [employer] [place] [place]Fam jyoti Practice Non-GME FHI2) OUTPATIENT [id number] PHA EBONIE DEVINE 03/07 Released w/o Limitations [employer] [place] [place]F amily Practic e Non-GME FHI2) [facility] [employer] [place] [place]Sco tt Flight Medicine Tm) OUTPATIENT [id number] hearing shift BONITA DAVID José Luis 03/12 Released w/o Limitations [employer] [place] [place]S cott Flight Medicin e Tm) [employer] [facility] [place]Aud iology) OUTPATIENT [id number] audiolo gy-hear ing PARAG KRAUS 03/18 Released w/o Limitations [employer] [place] [place]A udiolog y) [facility] [employer] [place] [place]Fam jyoti Practice Non-GME FHI2) OUTPATIENT [id number] TB SHOT JENNIFER KO 04/22 Released w/o Limitations [employer] [place] [place]F amily Practic e Non-GME FHI2) [employer] [place] [place]Fam jyoti Practice Non-GME FHI1) OUTPATIENT [id number] TB READ JENNIFER KO 04/25 Released w/o Limitations [employer] [place] [place]F amily Practic e Non-GME FHI1) [facility] [employer] [facility] [place]Opt ometry) OUTPATIENT [id number] Pt here for f/u from ER for metal in R ZAFAR Jerry 05/16 Released w/o Limitations [employer] [place] [place]O ptometr y) [employer] [place] [place]Opt ometry) OUTPATIENT [id number] pt here for rust in eye ZAFAR HDZ 05/21 Released w/o Limitations [employer] [place] [place]O ptometr y) [employer] [place] [place]Fam jyoti Practice Non-GME FHI2) OUTPATIENT [id number] FLU EBONIE DEVINE 05/31 Released w/o Limitations [employer] [place] [place]F amily Practic e Non-GME FHI2) [employer] ([facility] [place] jyoti Practice Non-GME FHI1) OUTPATIENT [id number] RAMIRO LOZANO 07/08 Sick at Home/Quarter s [employer] [place] [place]F amily Practic e Non-GME FHI1) [facility] [employer] [place] [place]Phy sical Therapy) OUTPATIENT [id number] ankle sprain REJI NICOLE 03/24 Released with Work/Duty Limitations [employer] ([facility] [place]P hysical Therapy ) [facility] [employer] [place] [place]Fam jyoti Practice Non-GME FHI2) OUTPATIENT [id number] RETIREM ENT PHYSICA EBONIE DA SILVA 07/23 Released w/o Limitations [employer] [place] [place]F amily Practic e Non-GME FHI2) [facility] [employer] [place] [place]) OUTPATIENT [id number] RAMIRO MA 07/28 Released w/o Limitations [employer] ([facility] [place]) [facility] [employer] ([facility] [place]Aud iology) OUTPATIENT [id number] ringing in the ears (tinnit us) TERESA VEGA 08/07 Released w/o Limitations [employer] ([facility] [place]A udiolog y) [facility] [employer] ([facility] [place]Fam jyoti Practice Non-GME FHI2) OUTPATIENT [id number] severe back pain-ca nnot make sick call insists appt EBONIE DEVINE 08/11 Released w/o Limitations [facility] [employer] [place] [place] Pract[place] Non-GME FHI2) [facility] [employer] [place] [place]Phy sical [place]) OUTPATIENT [id number] BACKREJI CORDON 08/13 Released w/o Limitations [facility] [employer] [place] [place] [facility] [employer] [place] [place]hy [place]ical [place]) OUTPATIENT [id number] CELESTINO CH 08/19 Released w/o Limitations [facility] [employer] [place] [place] [facility] [employer] [place] [place]Phy sical Therapy) OUTPATIENT [id number] LLOYD GUERRERO 08/21 Released w/o Limitations [facility] [employer] [place] [place]ical [place] [facility] [employer] [place] [place]hy [place]ical [place]) OUTPATIENT [id number] LLOYD GUERRERO 08/26 Released w/o Limitations [facility] [employer] [place] [place]ysical Therapy [place] [facility] [employer] [place] [place]Phy sical Therapy) OUTPATIENT [id number] REJI NICOLE 08/28 Released w/o Limitations [facility] [employer] [place] [place] hysical [place] [facility] [employer] [facility] [place]am [facility] Practice Non-GME FHI2) OUTPATIENT [id number] pre employm ent HAMILTON Singleton 01/21 Released w/o Limitations [facility] [employer] [place] [place]F [place] Practic e Non-GME FHI2) [address] [place] [address] [employer] [facility] [place]Sco tt Flight Medicine Tm) TELE CONSULT [id number] Notes Entered by: JOEL SÁNCHEZ 16 Jun 2013 1820 ------- ------- ------- ------- -- audioGRETCHEN Bee am 06/[address] [place] [address])([facility] Flight [facility] ) [address] [place] [address])([facility] Medicine ) TELE CONSULT [id number] Notes Entered by: Sherry CARL 11 May 2014 1549 ------- ------- ------- ------- -- Annual Audiogr am VIANCA DAUGHERTY 05/[address] [place] [address])([facility] ) [address] [place] [address])([facility] ) TELE CONSULT [id number] Notes Entered by: EVELINA SOTO 07 Apr 2015 0830 ------- ------- ------- ------- -- ANNUAL AUDIOGR AM EASTON VIDAL 04/[address] [place] [address])([facility] ) [address] [place] [address])(Aud iology Procedure s) OUTPATIENT [id number] Annual Audiogr am RUDY SOTO 03/20 Released w/o Limitations [address] [place] [address])(A udiolog y Procedu res) [address] [place] [address])([facility] Medicine ) TELE CONSULT [id number] Notes Entered by: Sonam BELLE 13 Dec 2016 0747 ------- ------- ------- ------- -- Pre-Emp loyment Physica l Appt Request / Non-Enr michael/ [phone] - GILDA Joseph 12/13 Referred for Appointment [address] [place] [address])([facility] Flight Medicin e Tm) [address] [place] [address])(Aud iology Procedure s) OUTPATIENT [id number] [facility] Annual MARIO ANDERSON 12/17 Released w/o Limitations [address] [place] [address])(A udiolog y Procedu res) [address] [place] [address])([facility] e Operation al Medicine Clin) OUTPATIENT [id number] PRE EMPLOYM ENT CL [facility]OSS 12/18 Released w/o Limitations [address] [place] [address])([facility]) [address] [place] [address])(Aud iology Procedure s) OUTPATIENT [id number] Notes Entered by: GRISELDA CLINE 19 Feb 2017 0925 ------- ------- ------- ------- -- Annual MALCOM VILLAREAL 02/19 Released w/o Limitations [address] [place] [address])(A udiolog y Procedu res) [address] [place] [address])(Aud iology Procedure s) OUTPATIENT [id number] Notes Entered by: Chris BULL 16 Jan 2022 0804 ------- ------- ------- ------- -- ANNUAL HCP JENY BULL 01/16 Released w/o Limitations [address] [place] [address])(A udiolog y Procedu res) [address] [place] [address])(Aud iology Procedure s) OUTPATIENT [id number] Notes Entered by: Chris BULL 20 Sep 2022 0840 ------- ------- ------- ------- -- ANNUAL HCP KODI JENY BULL 09/20 Released w/o Limitations [address] [place] [address])(A udiolog y Procedu res) [id number] ERNST DALLAS 09/16 Discharge Disposition: Home or Self Care 54H-3 [facility] [employer] [facility] Outpatient Encounter [id number] 10/05 [facility] N [id number] th [facility] [id number] LIAM VERDUZCO 08/27 Discharge Disposition: Home or Self Care 5H-3 [facility] [place] Procedures Combined list of: 1) Procedures from Department of Veterans Affairs facilities going back up to thelast 18 months, not all VA non-surgical procedures are included; 2) All procedures from the Department of Defense facilities. Procedure Procedure Type Code Date Perfomer Comments Sourc e No data available for this section Ambulato ry Pharmacy Threshold Audiogram (Pure Tone) Automated Threshold Audiogram (Pure Tone) Automated 0208T 2015 RUDY SOTO [facility] Physical Therapy Service Re-Evaluation Physical Therapy Service Re-Evaluation 36041 2006 REJI NICOLE [facility] Physical Therapy: ___ Se ion Segments, 15 Minutes Each Physical Therapy: ___ Session Segments, 15 Minutes Each [id number] 2006 LLOYD GUERRERO [facility] Modalities Diathermy Treatment 2006 LLOYD GUERRERO [facility] Modalities Diathermy Treatment 2006 LLOYD GUERRERO [facility] Physical Therapy: ___ Se ion Segments, 15 Minutes Each Physical Therapy: ___ Session Segments, 15 Minutes Each 13581 2006 LLOYD GUERRERO [facility] Modalities Diathermy Treatment 2006 CELESTINO CH [facility] Physical Therapy: ___ Se ion Segments, 15 Minutes Each Physical Therapy: ___ Session Segments, 15 Minutes Each [id number] 2006 CELESTINO CH [facility] Physical Therapy Service Evaluation Physical Therapy Service Evaluation 49410 2006 REJI NICOLE [facility] Physical Therapy Mobilization Joint Physical Therapy Mobilization Joint 95189 2006 REJI NICOLE Mobilization of the lumbosacral spine along with passive stretching and muscle energy techniques -- 10 minutes [facility] Physical Therapy: ___ Se ion Segments, 15 Minutes Each Physical Therapy: ___ Session Segments, 15 Minutes Each [id number] 2006 REJI NICOLE Hamstring stretches in supine, clitoris lumborum stretches and sitting and in all fours position -- 15 minutes [facility] Modalities Diathermy Treatment 2006 NICOLE, REJI G 10/10 x 20 minutes to the left quadratus lumborum DoD Evoked Otoacoustic Maeve ions Comprehensive 2006 TERESA VEGA Comprehensive Audiometry Comprehensive Audiometry 82320 2006 TERESA VEGA Audiologic Impedance Testing Audiologic Impedance Testing 02884 2006 TERESA VEGA Acoustic Reflex Testing 2006 TERESA VEGA Acoustic Reflex Decay Test Acoustic Reflex Decay Test 81362 2006 TERESA VEGA Ophthalmological Prior Patient Start Intermediate Level Care Ophthalmological Prior Patient Start Intermediate Level Care 43953 2005 ZAFAR HDZ Ophthalmological New Patient Start Intermediate Level Care Ophthalmological New Patient Start Intermediate Level Care 56866 2005 ZAFAR HDZ Eyelids Removal Of Embedded Foreign Body Right Upper Eyelid Eyelids Removal Of Embedded Foreign Body Right Upper Eyelid 82087 2005 ZAFAR HDZ Skin Test Anergy Tuberculin Intradermal Skin Test Anergy Tuberculin Intradermal 34756 2004 JENNIFER KO [facility] Comprehensive Audiometry Comprehensive Audiometry 51951 2004 PARAG KRAUS Evoked Otoacoustic Maeve ions Diagnostic Evaluation 2004 PARAG KRAUS Tympanometry Tympanometry 14249 2004 PARAG KRAUS Acoustic Reflex Testing 2004 PARAG KRAUS [facility] Psychiatric Diagnostic Evaluation Review of Records and Reports Psychiatric Diagnostic Evaluation Review of Records and Reports 42226 2004 FORREST ROBERT Physician Supervised Group Educational Services 2004 FORREST ROBERT Threshold Audiogram (Pure Tone) Automated Threshold Audiogram (Pure Tone) Automated 0208T JENY BULL [facility] PURE TONE AUDIOMETRY (THRESHOLD), AUTOMATED; AIR ONLY 2022 [facility] PURE TONE AUDIOMETRY (THRESHOLD), AUTOMATED; AIR ONLY 2021 [facility] PURE TONE AUDIOMETRY (THRESHOLD), AUTOMATED; AIR ONLY 2015 [facility] PHYSICAL THERAPY RE-EVALUATION 2006 [facility] THERAPEUTIC PROCEDURE, 1 OR MORE AREAS, EACH 15 MINUTES; THERAPEUTIC EXERCISES TO DEVELOP STRENGTH AND ENDURANCE, RANGE OF MOTION AND FLEXIBILITY 2006 [facility] THERAPEUTIC PROCEDURE, 1 OR MORE AREAS, EACH 15 MINUTES; THERAPEUTIC EXERCISES TO DEVELOP STRENGTH AND ENDURANCE, RANGE OF MOTION AND FLEXIBILITY 2006 [facility] THERAPEUTIC PROCEDURE, 1 OR MORE AREAS, EACH 15 MINUTES; THERAPEUTIC EXERCISES TO DEVELOP STRENGTH AND ENDURANCE, RANGE OF MOTION AND FLEXIBILITY 2006 [facility] APPLICATION OF A MODALITY TO 1 OR MORE AREAS; DIATHERMY (EG, MICROWAVE) 2006 [facility] ACOUSTIC REFLEX TESTING; DECAY 2006 [facility] OPHTHALMOLOGICAL SERVICES: MEDICAL EXAMINATION AND EVALUATION, WITH INITIATION OR CONTINUATION OF DIAGNOSTIC AND TREATMENT PROGRAM; INTERMEDIATE, ESTABLISHED PATIENT 2005 [facility] REMOVAL OF EMBEDDED FOREIGN BODY, EYELID 2005 [facility] REMOVAL OF FOREIGN BODY, EXTERNAL EYE; CONJUNCTIVAL SUPERFICIAL 2005 [facility] ACOUSTIC REFLEX TESTING, THRESHOLD 2004 [facility] PHYS/OTH QUALIFIED HEALTH CLUB CONCIERGE QUALIFIED,EDUCATIO N,TRAIN,LICENSURE/ REGULATION (WHEN APPLICABLE) EDUC SER RENDERED TO PATS IN A GRP SETTING (EG,,OBESI TY,OR DIABETIC INSTRUCT) 2004 [facility] POSTOPERATIVE FOLLOW-UP VISIT, NORMALLY INCLUDED IN THE SURGICAL PACKAGE, INDICATE THAT EVALUATION & MANAGEMENT SERVICE WAS PERFORMED DURING A POSTOPERATIVE PERIOD REASON RELATED ORIGINAL PROCEDURE 2004 [facility] POSTOPERATIVE FOLLOW-UP VISIT, NORMALLY INCLUDED IN THE SURGICAL PACKAGE, INDICATE THAT EVALUATION & MANAGEMENT SERVICE WAS PERFORMED DURING A POSTOPERATIVE PERIOD REASON RELATED ORIGINAL PROCEDURE 2004 [facility] UNLISTED SPECIAL SERVICE, PROCEDURE OR REPORT 2004 [facility] ALCOHOL REHABILITATION 1991 [facility] Social History Combined list of available smoking, tobacco, and other social history from Department of Defense and Veterans Affairs facilities. Social History Type Response Date Comment Sourc e Sexual Orientation Ambula tory Pharmacy Gender identity Ambulator y Pharmacy Sex Representation Male (finding) Un known Organization This section is an empty soc ial history section. [employer]D Assessment and Plan Combined list of future care activities from Department of Defense and Veterans Affairs facilities (e.g., assessment and plan notes, appointments, orders, and referrals). Additional future care activities may be listed in the Plan of Care section. Result Assessment and Plan Date Source Assessment and Plan No data available for this section 08/29/2024 Ambulatory Pharmacy Functional Status Combined list of recent functional and cognitive assessments recorded at Department of Defense and [facility] ([facility]).[facility] Functional [place]ner Measurement (FIM) Scale: 1 = Total Assistance (Subject = 0% +), 2 = Maximal Assistance (Subject = 25% +), 3 = Moderate Assistance (Subject = 50% +), 4 = Minimal Assistance (Subject = 75% +), 5 = Supervision, 6 = Modified Sumner (Device), 7 = Complete [place]ner (Timely, Safely). Assessment Date/Time Source Assessment Type Assessment Skill Assessment Score Assessment Details No data available for this section
[2024-08-29 10:03] VITALS: BP 173/95; PULSE 78; RESP 16; TEMP 36.7; O2SAT 98
--- OUTSIDE RECORDS SUMMARY | 2024-08-29 10:04 | XMS_ITS | Continuity of Care Document ---
Author Name [facility] Organization [facility] Care Team Providers Care Senior Teradata Developer Name Role Phone [facility] Unavailable Unavailable Problems Combined list of problems from Department of Defense and Veterans Affairs facilities. It does not include entries that were removed or entered in error. Problem Status Onset Date Problem Type Date of Resolution Comments Source Hearing Loss, Sensorineural, Unspecified Active Condition [facility] visit for: pre-employment physical Active Condition [...] DoD visit for: services physical Inactive Condition [facility]-Way paperwork completed - will refer to audiology [...] DoD hearing loss Active Condition AF Form 6273 completed and signed. Return to audiology for [...] CREAM(GM), TOPICAL, FOUGERA, 15 g TUBE Active [id number] 4 2023 15 Pharmac y Data Transac tion Service Facilit y Allergies, Adverse Reactions, Alerts Combined list of allergies from Department of Defense and Veterans Affairs facilities. It does not include entries that were removed or entered in error. Substance Category Reaction Severity Reaction type Status Date Reported Comments Source OTHER Drug allergy (disorder) Unknown active 5 [employer] [facility] ([facility]) OTHER Propensity to adverse reactions to drug Unknown Active 5 72 96.4KG NKDA 3JAN05 IBW=77.6K G Unknown Organization Immunizations Combined list of available immunizations from the Department of Defense and Veterans Affairs facilities. Immunization Series Date Given Administered By Site Reaction Lot Number CVX Code Drug Nutrition Internship Status Comments Source tetanus, diphtheria, acellular pertu [...] purified protein derivative 2004 zzLef t Arm [id number] sanofi pasteur complet ed Patient Tolerance : Negative Ambulat ory Pharmac y tuberculin skin test; purified protein derivative solution, intradermal 1 2004 Unknown, Provider [id number] Sanofi Pasteur ([facility]) complet ed tuberculi n skin test; purified protein derivativ e solution, intraderm al DoD hepatitis B adult vaccine 2004 [id number] 43 GlaxoSmithKli ne complet ed hepatitis B adult vaccine 04/18/05 Given Ambulat ory Pharmac y hepatitis B vaccine, adult dosage 3 2004 [id number] 43 SmithKline ([facility]) complet ed hepatitis B vaccine, adult dosage DoD influenza virus vaccine,split 2004 [id number] 15 sanofi pasteur complet ed influenza virus vaccine,s plit 03/22/05 Given Ambulat ory Pharmac y influenza virus vaccine, split virus (incl. purified surface antigen)-reti red CODE 1 2004 [id number] 15 Sanofi Pasteur ([facility]) complet ed influenza virus vaccine, split virus (incl. purified surface antigen)- retired CODE DoD hepatitis B adult vaccine 2004 [id number] 43 GlaxoSmithKli ne complet ed hepatitis B adult vaccine 11/07/04 Given Ambulat ory Pharmac y hepatitis B vaccine, adult dosage 2 2004 [id number] A4 43 SmithKline ([facility]) complet ed hepatitis B vaccine, adult dosage DoD tuberculin purified protein derivative 2004 zzLef t Arm [id number] 96 sanofi pasteur complet ed Patient Tolerance : Negative Ambulat ory Pharmac y hepatitis B adult vaccine 2004 [id number] A4 43 GlaxoSmithKli ne complet ed hepatitis B adult vaccine 10/03/04 Given Ambulat ory Pharmac y hepatitis B vaccine, adult dosage 1 2004 [id number] A4 43 SmithKline (SKB) complet ed hepatitis B vaccine, adult dosage DoD tuberculin skin test; purified protein derivative solution, intradermal 1 2004 Unknown, Provider [id number] 96 Sanofi Pasteur ([facility]) complet ed tuberculi n skin test; purified protein derivativ e solution, intraderm al DoD vaccinia (smallpox) vaccine 2004 [id number] 75 [employer] [facility] complet ed vaccinia (smallpox ) vaccine 08/15/04 Given Ambulat ory Pharmac y vaccinia (smallpox) vaccine 1 2004 [id number] 75 [facility] ([facility]) complet ed vaccinia (smallpox ) vaccine DoD typhoid vaccine, parenteral 2004 [id number] 41 sanofi pasteur complet ed typhoid vaccine, parentera l 07/18/04 Given Ambulat ory Pharmac y influenza virus vaccine,split 2004 [id number] 15 sanofi pasteur complet ed influenza virus vaccine,s plit 07/18/04 Given Ambulat ory Pharmac y influenza virus vaccine, split virus (incl. purified surface antigen)-reti red CODE 0 2004 [id number] 15 Sanofi Pasteur ([facility]) complet ed influenza virus vaccine, split virus (incl. purified surface antigen)- retired CODE DoD typhoid vaccine, parenteral, other than acetone-kille d, dried 0 2004 [id number] 41 Sanofi Pasteur ([facility]) complet ed typhoid vaccine, parentera l, other than acetone-k illed, dried DoD influenza virus vaccine, whole virus 2003 [id number] 16 sanofi pasteur complet ed influenza virus vaccine, whole virus 05/18/03 Given Ambulat ory Pharmac y influenza virus vaccine, whole virus 0 2003 [id number] 16 Sanofi Pasteur ([facility]) complet ed influenza virus vaccine, whole virus DoD typhoid vaccine, parenteral 2002 [id number] 41 sanofi pasteur complet ed typhoid vaccine, parentera l 06/08/02 Given Ambulat ory Pharmac y typhoid vaccine, parenteral, other than acetone-kille d, dried 0 2002 [id number] 41 Sanofi Pasteur ([facility]) complet ed typhoid vaccine, parentera l, other than acetone-k illed, dried DoD influenza virus vaccine, whole virus 2001 [id number] 16 [employer] complet ed influenza virus vaccine, whole virus 03/03/02 Given Ambulat ory Pharmac y influenza virus vaccine, whole virus 0 2001 [id number] 16 Juaneth-Ayerst ([facility]) complet ed influenza virus vaccine, whole virus DoD meningococcal polysaccharid e (MPSV4) 2001 [id number] 32 sanofi pasteur complet ed meningoco ccal polysacch aride (MPSV4) 09/11/01 Given Ambulat ory Pharmac y meningococcal polysaccharid e vaccine (MPSV4) 0 2001 [id number] 32 Sanofi Pasteur ([facility]) complet ed meningoco ccal polysacch aride vaccine (MPSV4) DoD influenza virus vaccine, whole virus 2000 [id number] 16 sanofi pasteur complet ed influenza virus vaccine, whole virus 02/23/01 Given Ambulat ory Pharmac y influenza virus vaccine, whole virus 0 2000 [id number] 16 Sanofi Pasteur ([facility]) complet ed influenza virus vaccine, whole virus DoD tuberculin purified protein derivative 2000 [id number] 96 [facility] complet ed Patient Tolerance : Negative Ambulat ory Pharmac y tuberculin skin test; purified protein derivative solution, intradermal 1 2000 Unknown, Provider [id number] 96 [facility] ([facility]) complet ed tuberculi n skin test; purified protein derivativ e solution, intraderm al DoD influenza virus vaccine, whole virus 1999 [id number] 16 [employer] complet ed influenza virus vaccine, whole virus 04/07/00 Given Ambulat ory Pharmac y typhoid vaccine, parenteral 1999 [id number] 41 [facility] complet ed typhoid vaccine, parentera l 04/07/00 Given Ambulat ory Pharmac y influenza virus vaccine, whole virus 0 1999 [id number] 16 Wyeth-Ayerst (Inactive) ([place]) complet ed influenza virus vaccine, whole virus DoD typhoid vaccine, parenteral, other than acetone-kille d, dried 0 1999 [id number] 41 [place] ([facility]) complet ed typhoid vaccine, parentera l, other than acetone-k illed, dried DoD yellow fever vaccine 1999 [id number] 37 [facility] complet ed yellow fever vaccine 11/22/99 Given Ambulat ory Pharmac y yellow fever vaccine 0 1999 [id number] 37 [facility] ([facility]) complet ed yellow fever vaccine DoD anthrax vaccine 1999 [id number] 24 [employer] complet ed anthrax vaccine 10/25/99 Given Ambulat ory Pharmac y anthrax vaccine 4 1999 [id number] 24 [employer] [place] ([facility]IP) complet ed anthrax vaccine DoD anthrax vaccine 1999 [id number] 24 [employer] complet ed anthrax vaccine 05/16/99 Given Ambulat ory Pharmac y anthrax vaccine 3 1999 [id number] 24 [employer] [place] ([facility]) complet ed anthrax vaccine DoD anthrax vaccine 1998 24 [employer] complet ed anthrax vaccine 04/30/99 Given Ambulat ory Pharmac y anthrax vaccine 2 1998 24 [employer] [place] (MIP) complet ed anthrax vaccine DoD anthrax vaccine 1998 [id number] 24 [employer] complet ed anthrax vaccine 04/12/99 Given Ambulat ory Pharmac y anthrax vaccine 1 1998 [id number] 24 [employer] [place] ([facility]) complet ed anthrax vaccine DoD tuberculin purified protein derivative 1998 2506-11 96 [facility] complet ed Patient Tolerance : Negative Ambulat ory Pharmac y influenza virus vaccine, whole virus 1998 16 complet ed influenza virus vaccine, whole virus 03/09/99 Given Ambulat ory Pharmac y influenza virus vaccine, whole virus 0 1998 16 () complet ed influenza virus vaccine, whole virus DoD tuberculin skin test; purified protein derivative solution, intradermal 1 1998 Unknown, Provider [id number] 96 [facility] ([facility] complet ed tuberculi n skin [...] illed, dried DoD tuberculin purified protein derivative [id number] 96 [facility] complet ed Patient Tolerance : Negative Ambulat ory Pharmac y influenza virus vaccine, whole virus [id number] 16 [facility] complet ed influenza virus vaccine, whole virus 02/08/98 Given Ambulat ory Pharmac y influenza virus vaccine, whole virus 0 [id number] 16 [facility] ([facility] complet ed influenza virus vaccine, whole virus DoD tuberculin skin test; purified protein derivative solution, intradermal 1 1997 Unknown, Provider [id number] [facility] ([facility]) complet ed tuberculi n skin [...] DoD tuberculin purified protein derivative [address] [place] [address] complet ed Patient Tolerance : Negative Ambulat ory Pharmac y tuberculin skin test; purified protein derivative solution, intradermal 1 1996 Unknown, Provider CON [employer] (CON) complet ed tuberculi n skin test; purified protein derivativ e solution, intraderm al DoD influenza virus vaccine, whole virus 1996 [id number] 16 [facility] complet ed influenza virus vaccine, whole virus 03/08/97 Given Ambulat ory Pharmac y influenza virus vaccine, whole virus 0 1996 [id number] 16 [facility] ([facility]) complet ed influenza virus vaccine, whole virus DoD tuberculin purified protein derivative 1996 96 [facility] complet ed tuberculi n purified protein derivativ e 01/21/97 Given Ambulat ory Pharmac y meningococcal polysaccharid e (MPSV4) 1996 [id number] 32 [facility] complet ed meningoco ccal polysacch aride (MPSV4) 07/09/96 Given Ambulat ory Pharmac y meningococcal polysaccharid e vaccine (MPSV4) 0 1996 [id number] 32 [facility] ([facility]) complet ed meningoco ccal polysacch [...] ADM Date DC Date Status Disposition Source [address] [place] [address] [employer] [facility]Fam jyoti Practice Non-GME FHI2) OUTPATIENT [id number] dianelys littlejohn in testicl es EBONIE DEVINE 04/12 Released w/o Limitations [address] [place] [address] [employer] [facility]F amily Practic e Non-GME FHI2) [address] [place] [address] [employer] [facility]Fam jyoti Practice Non-GME FHI2) OUTPATIENT [id number] flu s/s X3 days EBONIE DEVINE E 07/23 Released with Work/Duty Limitations [address] [place] [address] [employer] [facility])(F amily Practic e Non-GME FHI2) [address] [place] [address] [employer] [facility]) OUTPATIENT [id number] deploym ent INDIRA Harvey 08/06 Released w/o Limitations [address] [place] [address] [employer] [facility]L [facility]) Theater Facility OUTPATIENT [id number] 11/07 Released w/o Limitations [facility] OUTPATIENT [id number] 11/15 Released w/o Limitations [employer] [facility] OUTPATIENT [id number] 11/15 Released w/o Limitations [facility] OUTPATIENT [id number] 11/26 Released w/o Limitations Theater Facilit y [employer] ([facility])(Fam jyoti Practice Non-GME FHI2) OUTPATIENT [id number] post 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 ent MONROE RUIZ 01/03 Released w/o Limitations [employer] ([facility])(F amily Practic e Non-GME FHI2) [employer] ([facility])(Fam jyoti Practice Non-GME FHI2) OUTPATIENT [id number] PHA EBONIE DEVINE 03/07 Released w/o Limitations [employer] ([facility])(F amily Practic e Non-GME FHI2) [facility] [employer] ([facility])(Sco tt Flight Medicine Tm) OUTPATIENT [id number] hearing shift BNOITA DAVID José Luis 03/12 Released w/o Limitations [employer] ([facility])(S cott Flight Medicin e Tm) [employer] [facility]Aud iology) OUTPATIENT [id number] audiolo gy-hear ing PARAG KRAUS 03/18 Released w/o Limitations [employer] ([facility])(A udiolog y) [facility] [employer] ([facility])(Fam jyoti Practice Non-GME FHI2) OUTPATIENT [id number] TB SHOT JENNIFER KO 04/22 Released w/o Limitations [employer] ([facility])(F amily Practic e Non-GME FHI2) [employer] ([facility])(Fam jyoti Practice Non-GME FHI1) OUTPATIENT [id number] TB READ JENNIFER KO 04/25 Released w/o Limitations [employer] ([facility])(F amily Practic e Non-GME FHI1) [facility] [employer] [facility]Opt ometry) OUTPATIENT [id number] Pt here for f/u from ER for metal in R ZAFAR Jerry 05/16 Released w/o Limitations [employer] ([facility])(O ptometr y) [employer] ([facility])(Opt ometry) OUTPATIENT [id number] pt here for rust in eye ZAFAR HDZ 05/21 Released w/o Limitations [employer] ([facility])(O ptometr y) [employer] ([facility])(Fam jyoti Practice Non-GME FHI2) OUTPATIENT [id number] FLU EBONIE DEVINE 05/31 Released w/o Limitations [employer] ([facility])(F amily Practic e Non-GME FHI2) [employer] ([facility])([facility] jyoti Practice Non-GME FHI1) OUTPATIENT [id number] RAMIRO LOZANO 07/08 Sick at Home/Quarter s [employer] ([facility])(F amily Practic e Non-GME FHI1) [facility] [employer] ([facility])(Phy sical Therapy) OUTPATIENT [id number] ankle sprain REJI NICOLE 03/24 Released with Work/Duty Limitations [employer] ([facility])(P hysical Therapy ) [facility] [employer] ([facility])(Fam jyoti Practice Non-GME FHI2) OUTPATIENT [id number] RETIREM ENT PHYSICA EBONIE DA SILVA 07/23 Released w/o Limitations [employer] ([facility])(F amily Practic e Non-GME FHI2) [facility] [employer] ([facility])([facility]) OUTPATIENT [id number] RAMIRO MA 07/28 Released w/o Limitations [employer] ([facility])(D [facility]) [facility] [employer] ([facility])(Aud iology) OUTPATIENT [id number] ringing in the ears (tinnit us) TERESA VEGA 08/07 Released w/o Limitations [employer] ([facility])(A udiolog y) [facility] [employer] ([facility])(Fam jyoti Practice Non-GME FHI2) OUTPATIENT [id number] severe back pain-ca nnot make sick call insists appt EBONIE DEVINE 08/11 Released w/o Limitations [facility] [employer] ([facility])(F amily Practic e Non-GME FHI2) [facility] [employer] ([facility])(Phy sical Therapy) OUTPATIENT [id number] BACKREJI CORDON 08/13 Released w/o Limitations [facility] [employer] ([facility])(P hysical Therapy ) [facility] [employer] ([facility])(Phy sical Therapy) OUTPATIENT [id number] CELESTINO CH 08/19 Released w/o Limitations [facility] [employer] ([facility])(P hysical Therapy ) [facility] [employer] ([facility])(Phy sical Therapy) OUTPATIENT [id number] LLOYD GUERRERO 08/21 Released w/o Limitations [facility] [employer] ([facility])(P hysical Therapy ) [facility] [employer] ([facility])(Phy sical Therapy) OUTPATIENT [id number] LLOYD GUERRERO 08/26 Released w/o Limitations [facility] [employer] ([facility])(P hysical Therapy ) [facility] [employer] ([facility])(Phy sical Therapy) OUTPATIENT [id number] REJI NICOLE 08/28 Released w/o Limitations [facility] [employer] ([facility])(P hysical Therapy ) [facility] [employer] [facility])(Fam [facility] Practice Non-GME FHI2) OUTPATIENT [id number] pre employm ent HAMILTON Singleton 01/21 Released w/o Limitations [facility] [employer] ([facility])(F amily Practic e Non-GME FHI2) [address] [place] [address] [employer] [facility])(Sco tt Flight Medicine Tm) TELE CONSULT [id number] Notes Entered by: JOEL SÁNCHEZ 16 Jun 2013 1820 ------- ------- ------- ------- -- audioGRETCHEN Bee am 06/[address] [place] [address])([facility] Flight Medicin e ) [address] [place] [address])([facility] Flight Medicine ) TELE CONSULT [id number] Notes Entered by: Sherry CARL 11 May 2014 1549 ------- ------- ------- ------- -- Annual Audiogr am VIANCA DAUGHERTY 05/[address] [place] [address])([facility] ) [address] [place] [address])([facility] Flight Medicine ) TELE CONSULT [id number] Notes Entered by: EVELINA SOTO 07 Apr 2015 0830 ------- ------- ------- ------- -- ANNUAL AUDIOGR AM EASTON VIDAL 04/[address] [place] [address])([facility] Flight Medicin [facility] ) [address] [place] [address])(Aud iology Procedure s) OUTPATIENT [id number] Annual Audiogr am RUDY SOTO 03/20 Released w/o Limitations [address] [place] [address])(A udiolog y Procedu res) [address] [place] [address])([facility] Flight Medicine ) TELE CONSULT [id number] Notes Entered by: Sonam BELLE 13 Dec 2016 0747 ------- ------- ------- ------- -- Pre-Emp loyment Physica l Appt Request / Non-Enr michael/ [phone] - GILDA Joseph 12/13 Referred for Appointment [address] [place] [address])(S [facility] Flight Medicin e Tm) [address] [place] [address])(Aud iology Procedure s) OUTPATIENT [id number] [facility] Annual MARIO ANDERSON 12/17 Released w/o Limitations [address] [place] [address])(A udiolog y Procedu res) [address] [place] [address])([facility] Operation [facility]) OUTPATIENT [id number] PRE EMPLOYM ENT CL GROSS 12/18 Released w/o Limitations [address] [place] [address])([facility]) [address] [place] [address])(Aud iology Procedure s) OUTPATIENT [id number] Notes Entered by: GRISELDA CLINE 19 Feb 2017 0925 ------- ------- ------- ------- -- Annual MACLOM VILLAREAL 02/19 Released w/o Limitations [address] [place] [address])(A udiolog y Procedu res) [address] [place] [address])(Aud iology Procedure s) OUTPATIENT [id number] 2 Notes Entered by: Chris BULL 16 Jan 2022 0804 ------- ------- ------- ------- -- ANNUAL HCP JENY BULL 01/16 Released w/o Limitations [address] [place] [address])(A udiolog y Procedu res) [address] [place] [address])(Aud iology Procedure s) OUTPATIENT [id number] 3 Notes Entered by: Chris BULL 20 Sep 2022 0840 ------- ------- ------- ------- -- ANNUAL HCP KODI JENY BULL 09/20 Released w/o Limitations [address] [place] [address])(A udiolog y Procedu res) [facility] [id number] ERNST DALLAS 09/16 Discharge Disposition: Home or Self Care [facility] Outpatient Encounter [id number] 10/05 [facility] [id number]-[id number] th [facility] [id number] LIAM VERDUZCO 08/27 Discharge Disposition: Home or Self Care 5H-3 [facility] [place] Procedures Combined list of: 1) Procedures from [...] Therapy Service Re-Evaluation Physical Therapy Service Re-Evaluation 51249 2006 REJI NICOLE [facility] Physical Therapy: ___ Se ion Segments, 15 Minutes Each Physical Therapy: ___ Session Segments, 15 Minutes Each [id number] 2006 LLOYD GUERRERO [facility] Modalities Diathermy Treatment 2006 LLOYD GUERRERO [facility] Modalities Diathermy Treatment 2006 LLOYD GUERRERO [facility] Physical Therapy: ___ Se ion Segments, 15 Minutes Each Physical Therapy: ___ Session Segments, 15 Minutes Each [id number] 2006 LLOYD GUERRERO [facility] Modalities Diathermy Treatment 2006 CELESTINO CH [facility] Physical Therapy: ___ Se ion Segments, 15 Minutes Each Physical Therapy: ___ Session Segments, 15 Minutes Each [id number] 2006 CELESTINO CH [facility] Physical Therapy Service Evaluation Physical Therapy Service Evaluation 82121 2006 REJI NICOLE [facility] Physical Therapy Mobilization Joint Physical Therapy Mobilization Joint 68323 2006 REJI NICOLE Mobilization of the lumbosacral spine along with passive stretching and muscle energy techniques -- 10 minutes [facility] Physical Therapy: ___ Se ion Segments, 15 Minutes Each Physical Therapy: ___ Session Segments, 15 Minutes Each [id number] 2006 REJI NICOLE Hamstring stretches in supine, clitoris lumborum stretches and sitting and in all fours position -- 15 minutes [facility] Modalities Diathermy Treatment 2006 NICOLE, REJI G 10/10 x 20 minutes to the left quadratus lumborum DoD Evoked Otoacoustic Maeve ions Comprehensive 2006 TERESA VEGA Comprehensive Audiometry Comprehensive Audiometry 72924 2006 TERESA VEGA Audiologic Impedance Testing Audiologic Impedance Testing 62487 2006 TERESA VEGA Acoustic Reflex Testing 2006 TERESA VEGA Acoustic Reflex Decay Test Acoustic Reflex Decay Test 43357 2006 TERESA VEGA Ophthalmological Prior Patient Start Intermediate Level Care Ophthalmological Prior Patient Start Intermediate Level Care 08428 2005 ZAFAR HDZ Ophthalmological New Patient Start Intermediate Level Care Ophthalmological New Patient Start Intermediate Level Care 74725 2005 ZAFAR HDZ Eyelids Removal Of Embedded Foreign Body Right Upper Eyelid Eyelids Removal Of Embedded Foreign Body Right Upper Eyelid 01205 2005 ZAFAR HDZ Skin Test Anergy Tuberculin Intradermal Skin Test Anergy Tuberculin Intradermal 17112 2004 JENNIFER KO [facility] Comprehensive Audiometry Comprehensive Audiometry 66698 2004 PARAG KRAUS Evoked Otoacoustic Maeve ions Diagnostic Evaluation 2004 PARAG KRAUS Tympanometry Tympanometry 17963 2004 PARAG KRAUS Acoustic Reflex Testing 2004 PARAG KRAUS [facility] Psychiatric Diagnostic Evaluation Review of Records and Reports Psychiatric Diagnostic Evaluation Review of Records and Reports 06825 2004 FORREST ROBERT Physician Supervised Group Educational [...] [facility] PH[facility]/OTH QUALIFIED HEALTH EPIC MANAGER QUALIFIED,EDUCATIO N,TRAIN,LICENSURE/ REGULATION (WHEN APPLICABLE) EDUC SER [...] of Defense and Veterans Affairs (VA).VA Functional [place] Measurement (FIM) Scale: 1 = Total Assistance (Subject = 0% +), 2 = Maximal Assistance (Subject = 25% +), 3 = Moderate Assistance (Subject = 50% +), 4 = Minimal Assistance (Subject = 75% +), 5 = Supervision, 6 = Modified [place] (Device), 7 = Complete [place] (Timely, Safely). Assessment Date/Time Source Assessment Type Assessment Skill Assessment Score Assessment Details No data available for this section
--- OUTSIDE RECORDS SUMMARY | 2024-08-29 10:04 | XMS_ITS | Continuity of Care Document ---
Author Organization [facility] Address [address] [place] [address] Phone Care Team Providers Care Drama Critic Name Role Phone Dre Christianson MD Unavailable [...] Diagnoses Date Provider Providers Copied on Encounter [facility], [address], [place], [id number], tel:[phone] [facility] No Information 0 Sammy Erickson. [address], [address] , [place]. [phone] OFFICE/OUTPA TIENT VISIT, EST [facility], [address], [place], [place], [address], [place] tel:[phone] [facility] Medicine FAtty liver1 (chief complaint) HTN (chief complaint) preDM (chief complaint) Body mass index (BMI) 32.0-32.9, adultFatty liverMetabolic syndromeEssential (primary) hypertension Jan- 9 Sammy Erickson. [address], [place], [place], [address] , [place]. [phone] Referring Provider: Nick Herrera [address], [place], [place], [address]. tel:[phone] OFFICE/OUTPA TIENT VISIT, EST [facility], [address], [place], [place], [address], [place] tel:[phone] [facility] Medicine PreDM (chief complaint) LFT1 (chief complaint) HTN (chief complaint) Body mass index (BMI) 33.0-33.9, adultEssential (primary) hypertensionFatty liverMetabolic syndrome Mayito-0 9 Sammy Erickson. [address], [place], [place], [address] , [place]. tel:[phone] Referring Provider: Nick Herrera [address], [place], [place], [address]. tel:[phone] PREV VISIT, EST, AGE 40-64 [facility], [address], [place], [place], [address], [place] tel:[phone] [facility] Medicine PHysical (chief complaint) Encntr for general adult medical exam w/o abnormal findings Jul- 9 Sammy Erickson. [address], [place], [place], [address] , [place]. [phone] OFFICE/OUTPA TIENT VISIT, EST [facility], [address], [place], [place], [address], [place] tel:[phone] [facility] fatty liver1 (chief complaint) HTn (chief complaint) glucose1 (chief complaint) dizziness1 (chief complaint) Fatty liverDisorder of iron metabolism, unspecifiedHypergly cemiaDizzinessEssen tial (primary) hypertension 8 Sammy Erickson. [address], [place], [place], [address] , [place]. tel:[phone] Referring Provider: Nick Herrera [address], [place], [place], [address]. tel:[phone] OFFICE/OUTPA TIENT VISIT, [facility], [address], [place], [place], [address], [place] tel:[phone] [facility] HTN (chief complaint) sleep apnea1 (chief complaint) fatty liver1 (chief complaint) colon polyp1 (chief complaint) Fatty liverEssential (primary) hypertensionPolyp of colonSleep apneaHyperglycemia 8 Sammy Erickson. [address], [place], [place], [address] , [place]. tel:[phone] Referring Provider: Nick Herrera [address], [place], [place], [address]. tel:[phone] PREV VISIT, EST, AGE 40-64 [facility], [address], [place], [place], [address], [place] tel:[phone] [facility] Physical (chief complaint) Encntr for general adult medical exam w/o abnormal findings 8 Sammy Erickson. [address], [place], [place], [address] , [place]. tel:[phone] Referring Provider: Nick Herrera [address], [place], [place], [address]. tel:[phone] OFFICE/OUTPA TIENT VISIT, EST [facility], [address], [place], [place], [address], [place] tel:[phone] [facility] sleep apnea1 (chief complaint) fatty liver1 (chief complaint) colon CA (chief complaint) HTN (chief complaint) Essential (primary) hypertensionSleep apneaFatty liverEncounter for screening for malignant neoplasm of colon 7 Sammy Erickson. [address], [place], [place], [address] , [place]. tel:[phone] Referring Provider: Nick Herrera [address], [place], [place], [address]. tel:[phone] OFFICE/OUTPA TIENT VISIT, [facility], [address], [place], [place], [address], [place] tel:[phone] [facility] IV (chief complaint) HTN (chief complaint) sleep apnea1 (chief complaint) Contact dermatitisSleep apneaEssential (primary) hypertension 7 Sammy Steward [address], [place], [place], [address] , [place]. [phone] Referring Provider: Nick Herrera [address], [place], [place], [address]. tel:[phone] OFFICE/OUTPA TIENT VISIT, [facility], [address], [place], [place], [address], [place] tel:[phone] [facility] fatty liver1 (chief complaint) glucose1 (chief complaint) sleep apnea1 (chief complaint) Sleep apneaHyperglycemiaL iver diseaseEssential (primary) hypertension 7 Sammy Steward [address], [place], [place], [address] , [place]. tel:[phone] Referring Provider: Nick Herrera [address], [place], [place], [address]. tel:[phone] OFFICE/OUTPA TIENT VISIT, [facility], [address], [place], [place], [address], [place] tel:[phone] [facility] lFT (chief complaint) hyperglyce mia1 (chief complaint) D (chief complaint) AC (chief complaint) HTN (chief complaint) Liver diseaseHyperglycemi aEssential (primary) hypertensionVitamin D deficiency, unspecified 7 Sammy Erickson. [address], [place], [place], [address] , [place]. [phone] Referring Provider: Dre Christianson [address], [place], [place], [address]. tel:[phone] PREV VISIT, NEW, AGE 40-64 [facility], [address], [place], [place], [address], [place] [phone] [facility] PHysical (chief complaint) Encounter for general adult medical exam w abnormal findingsPain in right shoulder 7 Sammy Erickson. [address], [place], [place], [address] , [place]. [phone] Referring Provider: Dre Christianson [address], [place], [place], [address]. 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 [place] [address] [phone] Ordered: Referrals: Allopathic & Osteopathic Physicians : Internal Medicine : Gastroenterology. Francisco Pual. Evaluate and treat ordered Referral Ordered: COLONOSCOPY AND BIOPSY ordered Referral Ordered: SLEEP STUDY, ATTENDED ordered Referral Ordered: US EXAM, ABDOM, COMPLETE ordered Referral Ordered: Orthopedic Surgery (related to Pain in right shoulder) ordered Referral Ordered: Referrals: Orthopedic Surgery. Evaluate and treat ordered History Of Present Illness Encounter Date Complaint History Of Prese nt Illness FAtty liver1 Pt has fatty mellissa er. pt denies any abd pain Pt is seeing liver specialist. Pt has rosario with him next week. Pt had fibroscan. Pt does not drink alcohol HTN Pt has HTn pt ta kes irbesartan and his BP is slightly better today. pt denies any chest pain or headache preDM pt denies any po lyuria, polydipsia. Patient will try low-carb diet. Patient managing alcohol. His A1c is normal. LFT1 Pt has fatty mellissa er. pt has high ferritin. Pt is seeing liver specialist and he was tested heterozygous for hemochromatosis. Pt only drinks 1-2 beer per week now. HTN Pt has HTN. Pt t akes losartan and his BP is borderline. Pt denies any chest pain or headache PreDM Pt is pre-diabet ic. Pt feels [...] his liver. Pt denies any other complaints dizziness1 pt feels slightl y poor balance in the morning for several months. pt denies any headache. Pt denies any presyncope Pt denies any chest pain or palpitation. Pt denies any tinnitus or hearing loss. Pt only notices symptoms in the morning which resolves after getting up for a while. glucose1 Pt has high gluc ose. pt denies any polyuria, polydipsia. fatty liver1 Pt has fatty mellissa er His LFT is higher now. His ferritin is high also. Pt drinks 3-4 beers twice per week HTn Pt has HTN. Pt t akes losartan and BP stable. His BP is stable. HTN HTN. Pt has not been checking his BP at home. 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 pt uses cpap night and he tolerating the cpap ok Pt has less snoring and less fatigue fatty liver1 Pt has fatty mellissa er Pt denies any abdominal pain colon polyp1 Pt has colon sylwia yp. Pt has adenoma. Pt denies any GI bleeding Physical Pt needs annual physical. pt has sleep apnea. pt uses cpap nightly and doing ok. Pt feels better rested. Pt feels well. Pt has good energy level. Pt denies any gi issue. Pt has not done colonoscopy yet. 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 Pt uses CPAP nighlty and he [...] Pt does not check BP at home IV Pt has been doin g a lot of yard work and he notices itchy rash around right wrist area for one week. Pt denies any spreading. pt denies any trouble with breathing or swallowing HTN Pt has mild HTN. 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 Pt needs CPAP set up fatty liver1 Pt has fatty mellissa er. Pt cut down alcohol and carb now. Pt also has been eating less fat and carb and starchy food Pt denies any abd pain or jaundice glucose1 Pt has mildy hig h glucose. Pt does not have DM. Pt denies any polyuria, polydipsia sleep apnea1 Pt c/o snore nig htly and he also has difficulty with breathing at night Pt feels tired in the morning. Pt states that above went on for at least 5 years. lFT Pt has mild high ALT Pt used to drink heavily but currently he drinks 3-4 beer per week. Pt denies any abd pain hyperglycemia1 Pt has mild high glucose Pt denies any polyuria, polyuria. Pt denies any hypglycemia. Pt eats a lot of starchy diet D Pt has low D. AC Pt has right AC joint separation. Pt seeen two ortho and basially told to do PT and no surgery. Pt states that pain getting better HTN Pt has mild HTN today. Pt denies any chest pain or headache PHysical Pt needs annaul physical. pt is [...] o Body mass index (BMI) 32.0-32.9, adult Increase physical activity Relat ed to Fatty liver Diet and exercise Related to Fat ty liver Special diet education Related t o [...] Diet Related to Dietary Surveillance and Counseling Assessments Type Assessment Date No Information
--- NOTE | 2024-08-29 10:45 | ED_ITS ---
HPI - General Adult General Chief complaint: Upper Respiratory Infection Stated complaint: Cough Source: patient Mode of arrival: ambulatory Limitations: no limitations History of Present Illness HPI narrative: Pt presents for evaluation of cough for the past two days. No fever, chills, nausea, vomiting, diarrhea, SOB, sore throat or otalagia. No recent sick contacts to his knowledge. He does not smoke. He has not tried any medications to assist with his symptoms. Related Data Allergies Allergy/AdvReac Type Severity Reaction Status Date / Time No Known Allergies Allergy Verified 08/29/24 10:15 Review of Systems Review of Systems: CONSTITUTIONAL: Denies fever, chills, or sweats. EYES: Denies visual changes, redness, or discharge. ENT: Denies rhinorrhea, congestion, sore throat, or otalgia. CARDIOVASCULAR: Denies chest pain, palpitations, or edema. RESPIRATORY:Reports cough. Denies SOB. GASTROINTESTINAL: Denies abdominal pain, nausea, vomiting, or diarrhea. GENITOURINARY: Denies dysuria or hematuria. SKIN: Denies rash or itching. MUSCULOSKELETAL: Denies back pain, joint pain, or myalgia. NEUROLOGIC: Denies headache, numbness, dizziness, or weakness. PSYCHIATRIC: Denies anxiety or depression. [facility] Past Medical History Medical History Type 2 diabetes mellitus Bilateral plantar fasciitis Knee pain, bilateral Tibialis posterior tendon tear, nontraumatic Arthritis of midfoot Acquired pes planus of both feet Hydrocele 2000 had surgery per patient questionnaire Kidney stones Hyperglycemia Hypertension Surgical History Surgical History No pertinent past surgical history Family History Family History Mother Colostomy care Father Brain aneurysm Sibling No problems noted. 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 HEAD: Normocephalic, atraumatic. EYES: PERRLA and EOMI. ENT: Nares clear, no rhinorrhea or epistaxis. Mucous membranes moist. Oropharynx without tonsillar hypertrophy exudate or other lesions. Bilateral TMs pearly ochoa nonbulging NECK: Supple. No adenopathy or masses. No carotid bruits or JVD CHEST: Occasional cough on exam. Clear to auscultation. No respiratory distress. No wheezes rales or rhonchi HEART: Regular rate and rhythm. No murmur heard. Normal peripheral pulses. ABDOMEN: Soft, nontender, nondistended, normal active bowel sounds. EXTREMITIES: Normal range of motion. No edema. SKIN: Warm, dry, no rash. NEURO: No focal deficits. Alert and oriented x3. PSYCH: Normal mood and affect. Course Course Emergency Course: This is a 58 year old male who presented for evaluation of cough. Strep, COVID, flu negative. Declined CXR. I think this is reasonable. He has no adventitious lung sounds on exam. Exam consistent with viral URI. Recommend dextromethorphan for cough. Increase hydration. Follow up with primary provider. Go to the ER for worsening symptoms. Patient in agreement with plan of care. Level of Care: Express Care Visit Vital Signs Vital signs: Vital Signs Temperature 36.7 C 08/29/24 10:03 Pulse Rate 78 08/29/24 10:03 Respiratory Rate 16 08/29/24 10:03 Blood Pressure 173/95 H 08/29/24 10:03 Pulse Oximetry 98 08/29/24 10:03 Oxygen Delivery Room Air 08/29/24 10:03 Temperature 36.7 C 08/29/24 10:03 Pulse Rate 78 08/29/24 10:03 Respiratory Rate 16 08/29/24 10:03 Blood Pressure 173/95 H 08/29/24 10:03 Pulse Oximetry 98 08/29/24 10:03 Oxygen Delivery Room Air 08/29/24 10:03 Medical Decision Making Vital Signs Vital Signs: Vital Signs Temperature 36.7 C 08/29/24 10:03 Pulse Rate 78 08/29/24 10:03 Respiratory Rate 16 08/29/24 10:03 Blood Pressure 173/95 H 08/29/24 10:03 Pulse Oximetry 98 08/29/24 10:03 Oxygen Delivery Room Air 08/29/24 10:03 Temperature 36.7 C 08/29/24 10:03 Pulse Rate 78 08/29/24 10:03 Respiratory Rate 16 08/29/24 10:03 Blood Pressure 173/95 H 08/29/24 10:03 Pulse Oximetry 98 08/29/24 10:03 Oxygen Delivery Room Air 08/29/24 10:03 Lab Data Labs: Lab Results 08/29/24 Range/Units 11:04 POC Influenza A Ag Negative (Negative) POC Influenza B Ag Negative (Negative) POC SARS CoV-2 Ag Negative (Negative) POC Grp A Strep Screen Negative (Negative) Discharge Plan Discharge Clinical Impression: Upper respiratory infection, viral Patient Disposition: Home Condition: Stable Instructions: Antibiotic Form, Upper Respiratory Infection (DC), Viral Syndrome (ED) Additional Instructions: INCREASE FLUID INTAKE DELSYM(DEXTROMETHORPHAN) SHOULD HELP WITH COUGH Patient Language: Estonian Prescriptions: No Action Jardiance 10 mg tablet 10 mg PO QAM Qty: 90 1RF atorvastatin [Lipitor] 20 mg tablet 20 mg PO DAILY Qty: 90 1RF losartan 50 mg tablet 50 mg PO DAILY Qty: 90 1RF Follow-up/Referrals: Alfredito Jama DO [Primary Care Provider] - Time of Disposition: 11:19
[2024-08-29 11:05] LABS: EDCOVIDSCREEN Negative (Negative); EDINFLUASCREEN Negative (Negative); EDINFLUBSCREEN Negative (Negative); EDSTREPNEGPOS1 Negative (Negative)
== END 2024-08-29 11:20 | disposition home or self-care (01) ==
PROVIDERS: Emergency Provider Nurse Practitioner; PCP Internal Medicine
DX: J06.9 Acute upper respiratory infection, unspecified (principal); Z20.822 Contact with and (suspected) exposure to COVID-19; E11.9 Type 2 diabetes mellitus without complications; Z79.84 Long term (current) use of oral hypoglycemic drugs; I10 Essential (primary) hypertension
CPT/HCPCS: 87081; 87426; 87804; 87880; 99213; G0463